=== PATIENT | male | born 1975 | race African-American/Black ===

== ENCOUNTER 2017-10-03 12:39 | Emergency (ER) | payer MEDICAID, OTHER ==
[~2017-10-03] VITALS: Ht 175.3 cm; Wt 68.9 kg
[2017-10-03 12:41] VITALS: BP 125/86
== END 2017-10-03 13:20 | disposition home or self-care (01) ==
LOC: ED 13:00
DX: L03.011 Cellulitis of right finger (principal)
CPT/HCPCS: 10060; 99283

== ENCOUNTER 2018-01-22 12:16 | Emergency (ER) | payer BC, MEDICAID ==
[~2018-01-22] VITALS: Ht 175.3 cm; Wt 69.5 kg
[2018-01-22 12:23] VITALS: BP 120/75
[2018-01-22] MEDS ORDERED: PROPARACAINE OPHTH 0.5%, 15ML ONE (12:39)
== END 2018-01-22 14:06 | disposition home or self-care (01) ==
LOC: ED 13:27
DX: G89.11 Acute pain due to trauma (principal); H10.89 Other conjunctivitis; W50.0XXA Accidental hit or strike by another person, initial encounter; Y93.89 Activity, other specified; Y92.89 Other specified places as the place of occurrence of the external cause; Y99.8 Other external cause status
CPT/HCPCS: 99283